=== PATIENT | female | born 1960 | race Caucasian/White ===

== ENCOUNTER 2025-04-25 07:53 | Outpatient (CLI) | payer BC | END 2025-04-25 07:54 | disposition home or self-care (01) | LOC: ULT 07:53 | PROVIDERS: ATTEND Physician Assistant Medical | DX: K29.50 Unspecified chronic gastritis without bleeding (principal); K58.0 Irritable bowel syndrome with diarrhea; R10.11 Right upper quadrant pain | CPT/HCPCS: 76705 ==